=== PATIENT | male | born 1985 | race Caucasian/White ===

== ENCOUNTER 2018-03-29 09:53 | Day surgery (SDC) | payer OTHER ==
[~2018-03-29] VITALS: Ht 180.3 cm; Wt 81.0 kg
[2018-03-29 10:15] VITALS: BP 118/76
[2018-03-29] MEDS ORDERED: PROPOFOL 10 MG/ML, 20ML ONE (12:05)
[2018-03-29] MEDS ORDERED: LISI2.5T PO (12:07)
[2018-03-29] MEDS ORDERED: ASPI-496 PO (12:07)
[2018-03-29] MEDS ORDERED: ATOR40TA PO (12:08)
== END 2018-03-29 13:25 | disposition home or self-care (01) ==
LOC: CACL 09:53
PROVIDERS: ATTEND Internal Medicine Cardiovascular Disease
DX: I63.9 Cerebral infarction, unspecified (principal); Z79.82 Long term (current) use of aspirin; Z98.890 Other specified postprocedural states; Z91.09 Other allergy status, other than to drugs and biological substances
CPT/HCPCS: 93312; 93321; 93325; J2704

== ENCOUNTER 2018-05-10 10:12 | Day surgery (SDC) | payer OTHER ==
[~2018-05-10] VITALS: Ht 180.3 cm; Wt 80.0 kg
[~2018-05-10 10:12] MED LIST: ASPI-496 PO; ATOR40TA PO; LISI2.5T PO
[2018-05-10] MEDS ORDERED: SODIUM CHLORIDE 0.9% 1,000 ML IV ONE (10:48)
[2018-05-10 10:51] VITALS: BP 123/80
[2018-05-10] MEDS ORDERED: PLEASE ENTER HEIGHT AND WEIGHT MC SCH (11:00)
[2018-05-10 11:09] LABS: BASOPHILS % (AUTO) 2 % (0-1); EOSINOPHILS # (AUTO) 0.12 x10^3/uL (0-0.4); EOSINOPHILS % (AUTO) 2 % (1-7); LYMPHOCYTES # (AUTO) 2.23 x10^3/uL (1-3.4); LYMPHOCYTES % (AUTO) 42 % (22-44); MD NO; MEAN CORPUSCULAR HEMOGLOBIN 28.5 pg (27.5-34.5); MEAN CORPUSCULAR HGB CONC 33.5 g/dL (33.2-36.2); MEAN CORPUSCULAR VOLUME 85.1 fL (81-97); MEAN PLATELET VOLUME 8.5 fL (7.4-10.4); MONOCYTES # (AUTO) 0.57 x10^3/uL (0.2-0.8); MONOCYTES % (AUTO) 11 % (2-9); NEUTROPHILS # (AUTO) 2.35 x10^3/uL (1.8-6.8); NEUTROPHILS % (AUTO) 44 % (42-75); PLATELET COUNT 352 x10^3/uL (130-400); RED BLOOD COUNT 5.37 x10^6/uL (4.38-5.82); RED CELL DISTRIBUTION WIDTH 13.5 % (9.4-14.8)
[2018-05-10 11:20] LABS: ANION GAP 5 mmol/L (5-15); CALCIUM 9.3 mg/dL (8.5-10.1); CHLORIDE 105 mmol/L (98-107)
[2018-05-10 11:21] LABS: CREATININE 0.97 mg/dL (0.7-1.3)
[2018-05-10] MEDS ORDERED: FENTANYL PF 100 MCG/2ML ONE (11:50)
[2018-05-10] MEDS ORDERED: MIDAZOLAM 1 MG/ML, 5ML ONE (11:50)
[2018-05-10] MEDS ORDERED: LIDOCAINE 1%, 20ML ONE (11:50)
== END 2018-05-10 16:10 | disposition home or self-care (01) ==
LOC: CACL 10:12
PROVIDERS: ATTEND Internal Medicine Cardiovascular Disease
DX: R93.1 Abnormal findings on diagnostic imaging of heart and coronary circulation (principal); Z79.82 Long term (current) use of aspirin
CPT/HCPCS: 36415; 80048; 85025; 93454; 99156; C1760; C1769; C1894; J2250; J3010; J3490; Q9967

== ENCOUNTER 2018-07-19 09:02 | Day surgery (SDC) | payer OTHER ==
[~2018-07-19] VITALS: Ht 180.3 cm; Wt 70.0 kg
[2018-07-19 10:46] VITALS: BP 157/83
[2018-07-19] MEDS ORDERED: SODIUM CHLORIDE 0.9% 1,000 ML IV ONE (11:00)
[2018-07-19] MEDS ORDERED: PROPOFOL 10 MG/ML, 20ML ONE (13:05)
== END 2018-07-19 14:22 | disposition home or self-care (01) ==
LOC: CACL 09:02
PROVIDERS: ATTEND Internal Medicine Cardiovascular Disease
DX: I35.8 Other nonrheumatic aortic valve disorders (principal)
CPT/HCPCS: 93312; 93325; J2704